=== PATIENT | female | born 1995 | race Caucasian/White ===

== ENCOUNTER 2016-10-08 14:05 | Emergency (ER) | payer OTHER ==
[~2016-10-08] VITALS: Ht 157.5 cm; Wt 69.0 kg
[2016-10-08] MEDS ORDERED: HydrOXYzine PAMOATE 50 MG CAPSULE PO ONE (15:30)
[2016-10-08 16:27] VITALS: BP 128/74
== END 2016-10-08 16:29 | disposition home or self-care (01) ==
LOC: EMS 14:05
DX: F41.1 Generalized anxiety disorder (principal)
CPT/HCPCS: 99283